=== PATIENT | female | born 1950 | race Hispanic/Latino ===

== ENCOUNTER 2018-04-20 10:40 | Observation (INO) | payer OTHER ==
[2018-04-17 15:45] LABS: BASOPHILS % 0.4 % (0.0-1.0); EOSINOPHILS # (AUTO) 0.2 (0.0-0.4); EOSINOPHILS % 2.5 % (0.0-6.0); HEMATOCRIT 38.3 % (34.2-44.1); LYMPHOCYTES # (AUTO) 1.8 (1.0-3.2); LYMPHOCYTES % 24.5 % (18.0-39.1); MEAN CORPUSCULAR HEMOGLOBIN 30.9 pg (28-32); MEAN CORPUSCULAR HGB CONC 33.9 g/dL (31-35); MONOCYTES # (AUTO) 0.8 (0.2-0.8); MONOCYTES % 10.4 % (4.4-11.3); NEUTROPHILS # (AUTO) 4.5 (2.1-6.9); NEUTROPHILS % 62.1 % (38.7-80.0); PLATELET COUNT 195 x10e3/uL (140-360); RED BLOOD COUNT 4.21 x10e6/uL (3.6-5.1); RED CELL DISTRIBUTION WIDTH 12.9 % (11.7-14.4)
[2018-04-17 16:04] LABS: ALBUMIN 3.9 g/dL (3.5-5.0); ALBUMIN/GLOBULIN RATIO 1.4 (0.8-2.0); ANION GAP 11.1 mmol/L (8-16); CALCIUM 9.3 mg/dL (8.4-10.2); CREATININE, SERUM 1.04 mg/dL (0.57-1.11); POTASSIUM 4.1 mmol/L (3.5-5.1)
--- NOTE | 2018-04-17 16:40 | Diagnostic Imaging Report ---
PROCEDURE: Frontal and lateral views of the chest. COMPARISON: None. INDICATIONS: PRE OPERATIVE CHEST XRAY FOR [facility], A AND P REPAIR FINDINGS: Lines/tubes: None. Lungs: The lungs are well inflated and clear. There is no evidence of pneumonia or pulmonary edema. Pleura: There is no pleural effusion or pneumothorax. Heart and mediastinum: The heart and the mediastinum are normal. Bones: No acute bony abnormality. IMPRESSION: No acute cardiopulmonary disease. Dictated by: Osvaldo Valencia M.D. on 04/17/2018 at 16:43 Electronically approved by: Osvaldo Valencia M.D. on 04/17/2018 at 16:43
[~2018-04-20] VITALS: Ht 165.1 cm; Wt 68.9 kg
[~2018-04-20 10:40] MED LIST: LOSARTAN POTASS50 MG PO
[2018-04-20] MEDS ORDERED: CLINDAMYCIN PHOS 900MG/ D5W 50 50 ML IV ONE (10:57)
[2018-04-20] MEDS ORDERED: ESTROGENS CONJUGATED VAGINAL CR 45 GM TUBE PV ONE (11:53)
[2018-04-20] MEDS ORDERED: BUPIVACAINE 0.25%/EPI 30ML SDV INJ ONE (11:54)
[2018-04-20] MEDS ORDERED: FENTANYL CITRATE/PF 100MCG/2 ML INJ ONE ×2 (14:55→18:27)
[2018-04-20] MEDS ORDERED: HYDROCODONE/APAP 5MG-325MG TAB PO PRN (15:15)
[2018-04-20] MEDS ORDERED: BISACODYL 5 MG TAB EC PO PRN (15:15)
[2018-04-20] MEDS ORDERED: DIPHENHYDRAMINE HCL 25 MG CAP PO PRN (15:15)
[2018-04-20] MEDS ORDERED: MEPERIDINE HCL INJ 25 MG/ML VIAL IV PRN (15:15)
[2018-04-20] MEDS ORDERED: KETOROLAC TROMETHAMINE 30 MG/ML VIAL IM PRN (15:15)
[2018-04-20 15:34] VITALS: BP 150/78
--- NOTE | 2018-04-20 15:57 | Operative Report ---
DATE OF PROCEDURE: April 20, 2018 PREOPERATIVE DIAGNOSIS: Pelvic organ prolapse procidentia. POSTOPERATIVE DIAGNOSIS: Pelvic organ prolapse procidentia. PROCEDURES 1. Vaginal hysterectomy. 2. Anterior repair. 3. Repair of sacrospinous. 4. Colpopexy. COMPLICATIONS: None. ESTIMATED BLOOD LOSS: 50 mL. The patient was taken to the OR. Anesthesia was obtained. She was prepped and draped in the normal sterile fashion. Was placed in the lithotomy position. Two Allis clamps were applied at the cervix and the vaginal tissues were injected with Marcaine with epinephrine subcutaneously. Vaginal skin incision was made with the knife circumferentially around the cervix. The bladder was dissected off the cervix using Metzenbaum scissors and with gentle sweeps with on the index finger. The bladder was dissected off the cervix. Following this, the pouch of Kj was opened. The vaginal hysterectomy was performed using LigaSure. The vessels were occluded and cut the pedicles. The bladder had a pursestring with catgut 2-0. The pubocervical ligaments were approximated using Vicryl 0. The pelvis fascia was pierced with the index finger. The sacrospinous ligament was palpated. Vicryl suture using the needle colvin was used to place the suture on the sacrospinous ligament. Once it was medial to this, the same was repeated on the other side. The other end of the suture was stitched to the vaginal vault. Excess vaginal skin was trimmed off using curved Leon scissors. The vagina was closed with interlocking stitches of Vicryl 0. The 2 sutures of the sacrospinous ligament were tied to the vaginal vault. The vagina was lifted. The vaginal vault was lifted. Posterior repair was performed with 2 Allis clamps applied at the mucocutaneous junction and subcutaneous tissue. It was injected with Marcaine with epinephrine. The mucocutaneous junction between the 2 Allis clamps were excised using curved Leon scissors. The vagina was dissected off the perineum using Metzenbaum scissors. The vagina was opened posteriorly using the same instruments. Two flaps of the vagina were dissected off the rectum using both sharp and blunt dissection. The perineum was approximated using Vicryl 0 sutures. Excess vaginal skin was stripped off curved Leon scissors. The vagina was closed with interlocking stitches of Vicryl 0. The skin was approximated using subcutaneous Vicryl 2-0. The patient tolerated the procedure. Vaginal pack and a Barlow catheter was placed inside and revealed clear urine. The patient tolerated the procedure well. Lap, needle and sponge counts correct times 2 at the end of the procedure. Job#: [id number] MATT
[2018-04-20] MEDS: SODIUM CHLORIDE 0.45% 1,000 ML IV SCH (16:30)
[2018-04-20] MEDS ORDERED: MIDAZOLAM HCL 2 MG/2 ML VIAL ONE (18:27)
[2018-04-20 19:22] VITALS: BP 150/78
[2018-04-20 19:24] VITALS: BP 150/78
[2018-04-20] MEDS ORDERED: DEXAMETHASONE SOD PHOS INJ 4 MG/ML VIAL ONE (19:49)
[2018-04-20] MEDS ORDERED: ROCURONIUM BROMIDE 10 MG/ML 5ML VIAL ONE (19:49)
[2018-04-20] MEDS ORDERED: PROPOFOL IV EMULSION 10 MG/ML 20 ML VIAL ONE (19:49)
[2018-04-20] MEDS ORDERED: ONDANSETRON HCL INJ 2 MG/ML VIAL ONE (19:49)
[2018-04-20] MEDS ORDERED: LIDOCAINE HCL 2% LOCAL INJ 5 ML SDV VIAL INJ ONE (19:49)
[2018-04-20] MEDS ORDERED: SEVOFLURANE INHAL SOLN 250 ML PEN BTL ONE (19:49)
[2018-04-20] MEDS ORDERED: ACETAMINOPHEN 1000 MG/100 ML IV ONE (19:49)
[2018-04-20 20:00] VITALS: BP 109/55
[2018-04-20 21:00] VITALS: BP 109/55
[2018-04-21] VITALS: BP 106/54
[2018-04-21 04:00] VITALS: BP 144/64
[2018-04-21] MEDS: SODIUM CHLORIDE 0.45% 1,000 ML IV SCH ×2 (04:34→07:10)
[2018-04-21 07:12] VITALS: BP 144/64
[2018-04-21 08:00] VITALS: BP 163/70
[2018-04-21 12:16] VITALS: BP 145/63
[2018-04-21] MEDS ORDERED: GLYCERIN ADULT 3 GM SUPP PR SCH (14:30)
[2018-04-21] MEDS ORDERED: TYLENOL WITH C1 EACH PO (15:43)
[2018-04-21 16:00] VITALS: BP 141/65
== END 2018-04-21 16:38 | disposition home or self-care (01) ==
LOC: OR 10:40 → PACU V 15:12 → IMCU 15:25
PROVIDERS: ADMIT Obstetrics & Gynecology; ATTEND Obstetrics & Gynecology
DX: N81.3 Complete uterovaginal prolapse (principal); F41.9 Anxiety disorder, unspecified; I10 Essential (primary) hypertension
CPT/HCPCS: 36415; 57260; 57282; 58260; 71046; 80053; 85025; 86850; 86900; 88307; 88311; 93005; G0378 ×2; J1100; J2001; J2250; J2405; J1885